=== PATIENT | female | born 1995 | race Caucasian/White ===

== ENCOUNTER 2024-09-22 15:30 | Observation (INO) | payer MEDICAID, SELFPAY ==
[2024-09-22 15:45] VITALS: BP 113/69; PULSE 74
[2024-09-22 16:15] VITALS: BMI 25.0
[2024-09-22 16:16] VITALS: BP 113/69; PULSE 74; RESP 18; RESP 99; TEMP 36.6
--- NOTE | 2024-09-22 17:16 | XR_ITS ---
Examination: Complete OB ultrasound greater than 14 weeks Date and time of exam: October 02, 2024 1836 hrs. Indications: Patient fell today followed by pelvic contractions Findings: Viable intrauterine single fetus with single amniotic sac presentation cephalic Cardiac motion 167 BPM Placenta anterior grade 2 Umbilical cord insertion seen Amniotic fluid index 20 cm spine maternal left Cervix 3.9 cm Ovaries obscured by the uterus Mild hydrocele Composite estimated gestational age based on BPD, head circumference, abdominal circumference, femur length is 34 weeks 1 day Estimated weight 2323.6 g. Survey of intracranial anatomy, spinal anatomy, abdominal anatomy, four-chamber heart performed with no abnormalities identified. Impression: Viable intrauterine gestation cephalic presentation.
[2024-09-22 17:57] LABS: Collection Type, Urine Clean Catch
[2024-09-22 18:15] LABS: Bacteria,Urine 1+; Bilirubin,Urine Negative (Negative); Blood,Urine 1+ (Negative); Clarity,Urine Turbid (Clear/Hazy); Color,Urine Lt-Yellow (Lt Yel-Yel); Glucose, Urine Negative (Negative); Ketones,Urine Negative (Negative); Leukocyte Esterase,Urine Positive (Negative); Nitrite,Urine Negative (Negative); Protein,Urine Negative (Neg - Trace); RBC,Urine 8 /hpf (0-3); Specific Gravity,Urine 1.015 (1.001-1.035); Squamous Epithelial Cell,Urine 15 /hpf (0-5); Urobilinogen,Urine Negative mg/dL (0.0-1.0); WBC,Urine 11 /hpf (0-5)
[2024-09-22 18:39] LABS: FFN Specimen Descripton Other; Fetal Fibronectin Negative (Negative)
== END 2024-09-22 20:33 | disposition home or self-care (01) ==
PROVIDERS: Admitting Provider Specialist; PCP Internal Medicine; Referring Provider Specialist; Visit Provider Specialist
DX: Z34.83 Encounter for supervision of other normal pregnancy, third trimester (principal); Z3A.31 31 weeks gestation of pregnancy
CPT/HCPCS: 59899; 76805; 81001; 82731

== ENCOUNTER 2024-10-28 17:52 | Inpatient (IN) | payer MEDICAID, SELFPAY ==
[2024-10-28] VITALS (82 sets, daily range): BP systolic 0–122; BP diastolic 0–76; PULSE 68–111; TEMP 36.7; O2SAT 86–100
[2024-10-28] MEDS: RINGERS LACTATED 1000 ML 1,000 ML 100 ML IV (18:15)
--- NOTE | 2024-10-28 18:27 | PD.LDHP ---
Documentation for date of: 10/28/24 OB Labor/Induct. HPI History of Present Illness Chief complaint: Ruptured membranes, contractions, 37 weeks : 4 Para: 3 Term pregnancies: 3 pregnancies: 0 Living children: 3 History of Abortions: Spontaneous and Elective: 0 History of Vaginal deliveries: 3 History of sections: No History of : No LUIS: 11/18/24 Gestational Age (weeks): 37 Gestational Age (days): 0 History of present illness: The patient is a 29-year-old -0-0-3 at 37 0/7 weeks with all care uncomplicated with Dr Adorno who presented to triage reporting ruptured membranes about 6:00 PM on 10/28/2024. The patient's EDC is 11/18/2024. The patient was evaluated and found to be 8 cm dilated. She has not had a group B strep swab performed yet. All her remaining care is up-to-date and on the chart. History of Present Dating criteria: LMP confirmed by 1st trimester US Adequate Care: Yes Ultrasounds: normal mid trimester US Obstetrical complications: none Medical complications: none Labs Maternal Blood Type: O Pos Labs: Negative: RPR, Hepatitis B, Rubella Titre (Rubella nonimmune), HIV, Chlamydia and Gonorrhea and Unknown: Group Beta Strep (Group B strep swab not performed yet) Past Medical History Surgical History SURGICAL: Negative Section Meds Home Medications and Allergies Home Medications ?Medication ?Instructions ?Recorded ?Confirmed ?Type vits no.124-ferrous fum 1 tab PO QDAY 10/02/18 09/19/22 History 27 mg iron-folic acid 800 mcg tablet ( Vitamin) Allergies Allergy/AdvReac Type Severity Reaction Status Date / Time ciprofloxacin Allergy Severe Swelling Verified 09/19/22 05:15 of Lip/Tongue/Throat OB Exam Physical Exam Vital signs: Pulse BP 83 122/76 10/28/24 18:26 10/28/24 18:26 Detailed Labor and Delivery Exam Dilation (cm): 8 Effacement (%): 80 Cervix position: anterior station: -2 Consistency: soft Presentation: Vertex Membranes: ruptured Amniotic fluid: clear Baseline heart rate: 150 monitor accelerations: 15x15 monitor decelerations: None intermediate accountant variability: Moderate (11-25) Contraction frequency (min): every 5 min Tachysystole: No Contraction intensity: Moderate OB Assessment & Plan Assessment and Plan (1) Active labor at term: Status: Acute Assessment and plan: Admit anticipate . Ampicillin for unknown group B strep Additional Plan Induction method: none Plan: anticipate NVD
[2024-10-28 18:45] LABS: Basophils % (Auto) 1 % (0-2.5); Eosinophils # (Auto) 0.1 Thou/mm3 (0.0-0.5); Eosinophils % (Auto) 1 % (0-10); Hematocrit 36.8 % (36.0-46.0); Hemoglobin 12.7 g/dL (12.0-16.0); Immature Granulocytes % (Auto) 1 % (0-0); Immature Granulocytes Auto 0.06 Thou/mm3 (0.00-0.00); Lymphocytes # (Auto) 1.7 Thou/mm3 (1.0-4.8); Lymphocytes % (Auto) 20 % (10-50); Mean Corpuscular HGB Conc 34.5 g/dl (31.0-37.0); Mean Corpuscular Hemoglobin 34.3 pg (25.0-35.0); Mean Corpuscular Volume 100 fL (80-100); Monocytes # (Auto) 0.6 Thou/mm3 (0.0-0.8); Monocytes % (Auto) 7 % (0-12); Neutrophils # (Auto) 6.1 Thou/mm3 (1.8-7.7); Neutrophils % (Auto) 71 % (37-80); Nucleated Red Blood Cell % 0 /100 WBC (0); Platelet Count 244 Thou/mm3 (140-440); RDW Standard Deviation 50.2 fL (36.4-46.3); White Blood Count 8.6 Thou/mm3 (3.6-11.0)
[2024-10-28 20:06] LABS: Syphilis Nonreactive (Nonreactive)
--- NOTE | 2024-10-28 21:51 | PD.LDPN ---
Documentation for date of: 10/28/24 OB Labor Progress Note Pain Control Pain control: tolerating well Comments: 8 patient does not feel the urge to push Pelvic Exam Dilation (cm): 8 Effacement (%): 80 station: -2 Amniotic membrane status: Leaking (Ruptured a forebag at 9:50) Contractions Monitor mode: External Contraction frequency: every 5 min Contraction intensity: Moderate Status status: Category l Assessment and Plan Assessment: active labor Plan OB labor note: continuous present management Comments: Patient is unknown group B strep status we did check a group B strep swab. The patient declines empiric ampicillin treatment at this time
[2024-10-28] MEDS: MINERAL OIL 30 ML UDC TOP (22:13)
[2024-10-28] MEDS: OXYTOCIN in NS 20 units 20 UNIT/1,000 ML BAG 125 UNIT IV (22:27)
[2024-10-28] MEDS: BENZO/LANO/ALOE (Dermoplast) 60 GM CAN 1 SPRAY TOP (22:34)
[2024-10-29] VITALS (12 sets, daily range): BP systolic 101–107; BP diastolic 54–69; PULSE 67–78; RESP 16–18; TEMP 36.6–37.1; O2SAT 97–99
[2024-10-29] MEDS: TRANEXAMIC ACID 1,000 MG IVPB 1,000 MG/100 ML BAG 200 MG IV (00:07)
--- NOTE | 2024-10-29 06:59 | PD.LDDELS ---
Data (Rao) Data Hx Section: No Maternal Blood Type: O Pos Rubella Titre: Negative RPR: Non-reactive Labs: Negative: RPR, Hepatitis B, HIV, Chlamydia and Gonorrhea and Unknown: Group Beta Strep : 4 Para: 3 Term: 3 : 0 : 0 Delivery Data (Rao) Labor Data Stimulated/Augmented: No Induction: No ROM Date: 10/28/24 ROM Time: 17:00 Rupture Type: SROM Amniotic Fluid: Clear Delivery Data EDC: 11/18/24 EDC calculated by:: LMP/early US confirmation Labor Onset Stage 1 Date: 10/28/24 Labor Onset Stage 1 Time: 07:00 Labor Onset Stage 2 Date: 10/28/24 Labor Onset Stage 2 Time: 22:03 Delivery Date: 10/28/24 Delivery Time: 22:19 Gestational age (weeks): 37 Gestational age (days): 0 Placenta Delivery Date: 10/28/24 Placenta Delivery Time: 22:25 Length stage 2 (minutes): 10 Length stage 3 (minutes): 5 Delivered by: Rossy Barnett Delivery nurse: Merry Roy Snow Groomer at delivery: No Support person(s) at delivery: FOB Other staff at delivery: Nurse Other staff at delivery: RT Other staff at delivery: Desi Love Delivery Method Delivery: Vaginal Delivery Type: Spontaneous Presentation: Vertex Position: OA Anesthesia Type Primary Anesthesia: None Secondary Anesthesia: None Delivery Room Medications Other Intrapartum Medications: No Post Delivery Medications N/A: No Placenta Placenta Delivery: Spontaneous Placenta Cultures Obtained: No Placenta Sent for Examination: No Cord Sample: Cord Blood Obtained Episiotomy Episiotomy: None EBL Estimated blood loss (ml): 200 Umbilical Cord Umbilical Vessels: 3 Nuchal Cord: x1 Body Cord: None Additional Procedures The patient is a 29-year-old -0-0-3 at 37-0/7 weeks who presented with ruptured membranes around 1900 on 10/28/24 8 cm dilated. All of her care was up-to-date and on the chart with Dr Adorno. She did not have a group B strep swab performed yet. As she was 8 cm dilated, I offered her a Group B strep swab which she accepted. I offered her empiric treatment with ampicillin which she declined. The patient had irregular contractions and was not in much pain. About 2 and a half hours after admission, I examined the patient and she was 9 cm with a bulging bag. I AROMed the bag and the patient progressed to complete and began pushing within the next 20 minutes. She pushed through 3 spaced out contractions delivering a liveborn male at 2219. Findings: Liveborn male, in the ALYSIA presentation. With a loose nuchal cord x 1. No meconium. Apgars 9 and 9. Weight 3255 g or approximately 7 pounds 3 ounces. The placenta was complete spontaneous grossly normal delivering within 5 minutes of the baby. The patient delivered over an intact perineum. Complications were none Condition both mom and were in stable condition in the delivery room. Complications Complications: None. [place] Data (Rao) Data order: 4 Infant Gender: Male Weight Grams: 3255 1 Minute Total: 9 5 Minute Total: 9
[2024-10-29 07:05] LABS: Basophils # (Auto) 0.1 Thou/mm3 (0.0-0.2); Basophils % (Auto) 0 % (0-2.5); Eosinophils % (Auto) 0 % (0-10); Hematocrit 31.1 % (36.0-46.0); Hemoglobin 10.4 g/dL (12.0-16.0); Immature Granulocytes % (Auto) 1 % (0-0); Immature Granulocytes Auto 0.07 Thou/mm3 (0.00-0.00); Lymphocytes # (Auto) 1.9 Thou/mm3 (1.0-4.8); Lymphocytes % (Auto) 15 % (10-50); Mean Corpuscular HGB Conc 33.4 g/dl (31.0-37.0); Mean Corpuscular Hemoglobin 34.1 pg (25.0-35.0); Mean Corpuscular Volume 102 fL (80-100); Monocytes % (Auto) 8 % (0-12); Neutrophils # (Auto) 9.6 Thou/mm3 (1.8-7.7); Neutrophils % (Auto) 76 % (37-80); Nucleated Red Blood Cell % 0 /100 WBC (0); Platelet Count 187 Thou/mm3 (140-440); RDW Standard Deviation 51.8 fL (36.4-46.3); Red Blood Count 3.05 Miln/mm3 (4.00-5.20); White Blood Count 12.6 Thou/mm3 (3.6-11.0)
--- NOTE | 2024-10-29 12:35 | PD.LDPPPRG ---
Subjective Subjective Interval history: The patient is a 29-year-old G4 now P4004 status post vaginal delivery around 10:30 PM last evening. She is resting comfortably in bed. Baby is lying next to her. She is breast-feeding. Her is at bedside. This was her fourth boy. She declines heavy bleeding fevers chills or significant pain. Exam Vital Signs Temp Pulse Resp BP Pulse Ox O2 Del Method 98.7 F 70 16 101/61 97 Room Air 10/29/24 08:00 10/29/24 08:00 10/29/24 08:00 10/29/24 08:00 10/29/24 08:00 10/29/24 08:00 Narrative Exam Patient is alert and oriented x 3 resting comfortably in bed. Fundus is firm nontender. Objective Labs 10/29/24 06:15 Labs: Laboratory Results - last 24 hr 10/28/24 10/29/24 18:20 06:15 WBC 8.6 12.6 H D RBC 3.70 L 3.05 L Hgb 12.7 10.4 L D Hct 36.8 31.1 L MCV 100 102 H MCH 34.3 34.1 MCHC 34.5 33.4 RDW Std Deviation 50.2 H 51.8 H Plt Count 244 187 D Neut % (Auto) 71 76 Lymph % (Auto) 20 15 [place] % (Auto) 7 8 Eos % (Auto) 1 0 Baso % (Auto) 1 0 Neut # (Auto) 6.1 9.6 H Lymph # (Auto) 1.7 1.9 [place] # (Auto) 0.6 1.0 H Eos # (Auto) 0.1 0.0 Baso # (Auto) 0.0 0.1 Immature Gran # (Auto) 0.06 H 0.07 H Absolute Nucleated RBC 0.00 0.00 Immature Gran % 1 H 1 H Nucleated RBC % 0 0 Syphilis Serology Nonreactive Blood Type O Positive Antibody Screen NEGATIVE Blood Bank Wristband ID Yes Assessment & Plan Problem List (1) Term delivered: Status: Acute Assessment and plan: Patient is day #1 doing quite well. Since she delivered late we will keep the patient in house till tomorrow morning. She was group B strep unknown and a culture performed on admission is still pending. Patient had declined empiric treatment with ampicillin and delivered yesterday within 3 hours of getting admitted. Time Spent With Patient Time: Total time spent is greater than 50% in coordination of care (as documented) at patient's floor/unit and/or counseling patient: Time with patient: less than 15 minutes
[2024-10-29] MEDS: IBUPROFEN TAB 400 MG TABLET 800 MG PO (16:14)
[2024-10-30 04:28] VITALS: BP 107/69; PULSE 63; RESP 16; TEMP 36.6; O2SAT 97
--- NOTE | 2024-10-30 07:16 | PD.LDPPPRG ---
Subjective Subjective Interval history: Patient denies any problem or complaint Exam Vital Signs Temp Pulse Resp BP Pulse Ox O2 Del Method 97.8 F 63 16 107/69 97 Room Air 10/30/24 04:28 10/30/24 04:28 10/30/24 04:28 10/30/24 04:28 10/30/24 04:28 10/30/24 04:28 Routine Cardiovascular Exam Comments: Regular rate and rhythm Routine Abdominal Exam Comments: Fundus is firm nontender Routine Extremities Exam Comments: Nontender Objective Labs 10/29/24 06:15 Assessment & Plan Problem List (1) Term delivered: Status: Acute Assessment and plan: day #1 status post spontaneous vaginal delivery Discharge home Discharge instructions given. Follow-up in the office in 6 weeks Time Spent With Patient Time: Total time spent is greater than 50% in coordination of care (as documented) at patient's floor/unit and/or counseling patient:
--- NOTE | 2024-10-30 07:18 | PD.LDDS ---
DS: Providers Provider Date of admission: 10/28/24 18:15 Primary care physician: Physician No Primary/Family Admitting Provider: Rossy Barnett MD ([facility]) Attending Provider on Admission: Janes Adorno MD Consults: 10/28/24 22:38 Referral Routine Comment: 10/28/24 22:58 Referral Routine Comment: Attending Provider on DC: Janes Adorno MD Discharging Provider: Janes Adorno MD DS: Diagnosis Problem List Completed Was Problem List Reviewed/Reconciled?: Yes Summary/Hosp Course Brief History: The patient is a 29-year-old -0-0-3 at 37 0/7 weeks with all care uncomplicated with Dr Adorno who presented to triage reporting ruptured membranes about 6:00 PM on 10/28/2024. The patient's EDC is 11/18/2024. The patient was evaluated and found to be 8 cm dilated. She has not had a group B strep swab performed yet. All her remaining care is up-to-date and on the chart. Time Spent with Patient Time attestation: Total time spent providing and/or coordinating discharge services: Exam Vital Signs Temp Pulse Resp BP Pulse Ox O2 Del Method 97.8 F 63 16 107/69 97 Room Air 10/30/24 04:28 10/30/24 04:28 10/30/24 04:28 10/30/24 04:28 10/30/24 04:28 10/30/24 04:28 Discharge Plan Plan Patient Disposition: HOME (Self Care) Patient condition on transfer: Stable Prescriptions/Referrals Prescriptions/Med Rec: Continued Vitamin 27 mg iron- 800 mcg Tablet 1 tab PO QDAY ibuprofen 800 mg tablet 800 mg PO Q6H PRN (Reason: pain) Qty: 20 0RF Referrals: No Primary/Family,Physician [Primary Care Provider] - Patient/Caregiver Discharge Instructions Discharge Activity: activity as tolerated Other Discharge Activity Instructions:: Follow up office 6 weeks. Print Language: [place] Islander Stand Alone Forms: Nikki Award Info., Patient Portal Info Letter Discharge Order Discharge Orders: Discharge (Routine); Ordered 10/30/24 Ordered By: Janes Adorno Planned Discharge Date 10/30/24
[2024-10-30 08:00] VITALS: BP 105/66; PULSE 74; RESP 18; TEMP 36.4; O2SAT 97
[2024-10-30] MEDS: MEASLES, MUMPS & RUBELLA VACC 0.5 ML VIAL SCi (11:00)
== END 2024-10-30 14:40 | disposition home or self-care (01) | DRG 560 ==
LOC: S4NX 10-30 06:03 → S4SX 10-30 06:03
PROVIDERS: Admitting Provider Obstetrics & Gynecology; Visit Provider Specialist
DX: O42.02 Full-term premature rupture of membranes, onset of labor within 24 hours of rupture (principal); O69.81X0 Labor and delivery complicated by cord around neck, without compression, not applicable or unspecified; Z37.0 Single live birth; Z3A.37 37 weeks gestation of pregnancy
CPT/HCPCS: 36415; 59409; 85025; 86780; 86850; 86900; 86901; 87081; 90707; 94762; J2590; J3490; J7120; A9270

== ENCOUNTER 2024-12-01 20:05 | Emergency (ER) | payer MEDICAID, SELFPAY ==
[2024-12-01 20:49] VITALS: BP 134/91; PULSE 74; RESP 18; TEMP 37; O2SAT 96
--- NOTE | 2024-12-01 20:50 | PD.EDWOUND ---
ED Wound/Laceration-RME/HPI General Chief Complaint: Wound/Laceration Stated Complaint: LEFT FINGER LAC Time Seen by Provider: 12/01/24 20:26 Arrival date/time: 12/01/24 20:05 RME / HPI RME / HPI narrative: 29-year-old female patient came in for evaluation regarding laceration to the left middle finger. Incident happened while washing the dishes with a broken glass. Denies any other injury patient is worried because it is bleeding a lot. Vaccination is up-to-date. For tetanus. Incident happened few minutes prior to ER visit. Related Data Home Medications ?Medication ?Instructions ?Recorded ?Confirmed vits no.124-ferrous fum 1 tab PO QDAY 10/02/18 09/19/22 27 mg iron-folic acid 800 mcg tablet ( Vitamin) Previous Rx's ?Medication ?Instructions ?Recorded ibuprofen 800 mg tablet 800 mg PO Q6H PRN pain #20 tabs 09/19/22 Allergies Allergy/AdvReac Type Severity Reaction Status Date / Time ciprofloxacin Allergy Severe Swelling Verified 12/01/24 20:06 of Lip/Tongue/Throat Review of Systems Review of Systems Narrative Review of Systems: Review of system reviewed and within normal limits except mentioned in HPI ED Exam Narrative Physical exam: VITAL SIGNS: Reviewed. GENERAL APPEARANCE: Alert and interactive, follows commands, no acute distress, HEAD AND FACE: Non-traumatic. ENT: PERRL, pink conjunctivitis, eyelid no trauma, Mucous membrane moist. NECK: Supple, nontender, no nuchal rigidity. MUSCULOSKELETAL: low back nontender, full range of motion. EXTREMITIES: Nontender, full range of motion. SKIN: Color pink, dry, no rash, 1 cm laceration to the left middle finger distal phalanx palmar aspect, no abrasions, no contusions. LYMPHATICS: Deferred. Course Quality Measures none Orders Category Date Time Status Lidocaine 1% 20 ml [Xylocaine 1% 20 ML] Med 12/01/24 20:49 Discontinued 10 ml INFL X1 ONE Vital Signs Vital signs: Vital Signs Temperature 98.6 F 12/01/24 20:49 Pulse Rate 74 12/01/24 20:49 Respiratory Rate 18 12/01/24 20:49 Blood Pressure 134/91 H 12/01/24 20:49 Pulse Oximetry (%) 96 12/01/24 20:49 Oxygen Delivery Method Room Air 12/01/24 20:49 Wound / Laceration MDM Narrative MDM Narrative:: 29-year-old female patient came in for evaluation regarding laceration to the left middle finger. Incident happened while washing the dishes with a broken glass. Denies any other injury patient is worried because it is bleeding a lot. Vaccination is up-to-date. For tetanus. Incident happened few minutes prior to ER visit. Repair and suturing was done by me see procedure note Patient data External records reviewed:: None Clinical information provided by:: patient Social determinants that could affect healthcare access:: none Patient has the following chronic illnesses:: None How is presenting disease/condition affected by chronic disease/condition?: no chronic disease Evaluation data The following diagnostics were reviewed and interpreted by me:: other (specify) (None) Lab and/or radiology exams considered but not ordered:: None Interpretation Summary: None Medications / Prescriptions Medications or Prescriptions considered but not ordered:: None Medication administrations:: Medication Administration History Discontinued Medications Lidocaine HCl (Lidocaine Hcl 1% 20 Ml Vial) 10 ml INFL X1 ONE Stop: 12/01/24 20:50 Last Admin: 12/01/24 21:05 Dose: 10 ml Documented By: Lidocaine Consultations Consultation(s) initiated? (list below): No Diagnosis Wound Differential Diagnosis: laceration, abrasion and avulsion of skin Most likely diagnosis given after review of the tests above:: Finger laceration Admission Indicated Admission indicated?: not indicated Admission Request Was there a request for admission?: No Disposition Plan Disposition Plan: Discharge Discharge Attestation Discharge Attestation: The patient and all family members were given an opportunity to ask questions and understood the discharge instructions. Discharge instructions specifically effects, indications for sooner follow up or return to the emergency department, and the expected course of current diagnosis. Patient condition: Stable Discharge Plan Plan Patient Disposition: HOME (Self Care) Discharge Disposition comment: Stable Prescriptions/Referrals Prescriptions/Med Rec: No Action Vitamin 27 mg iron- 800 mcg Tablet 1 tab PO QDAY ibuprofen 800 mg tablet 800 mg PO Q6H PRN (Reason: pain) Qty: 20 0RF Problem List Clinical Impression: Finger laceration Patient/Caregiver Discharge Instructions Discharge Activity: activity as tolerated Education Materials: ED Laceration: All Closures Additional Instructions: Thank you for the opportunity for serving you today. You are stable for discharged . You are advised to: Follow-up with your PCP in 1 to 2 days Return to ED for worsening of symptoms Increase oral fluids Daily dressing with bacitracin. For removal of sutures in 7 to 10 days Print Language: Sinhala Stand Alone Forms: Nikki Award Info., Patient Portal Info Letter PA/SHELTER CASE MANAGER Supervising Physician PA/SHELTER CASE MANAGER Supervising Physician: MD Rishabh
[2024-12-01] MEDS: LIDOCAINE HCL 1% 20 ML VIAL 10 ML INFL (21:05)
== END 2024-12-01 21:39 | disposition home or self-care (01) ==
LOC: SERX 21:33
PROVIDERS: Emergency Provider Emergency Medicine; PCP Internal Medicine
DX: S61.213A Laceration without foreign body of left middle finger without damage to nail, initial encounter (principal); X58.XXXA Exposure to other specified factors, initial encounter; Y93.G1 Activity, food preparation and clean up
CPT/HCPCS: 12001; 99283; J3490

== ENCOUNTER 2025-01-06 19:21 | Emergency (ER) | payer MEDICAID, SELFPAY ==
[2025-01-06 19:23] VITALS: BMI 21.8
[2025-01-06 19:49] VITALS: BP 101/68; PULSE 66; RESP 17; TEMP 36.8; O2SAT 97
[2025-01-06 20:03] LABS: Collection Type, Urine Clean Catch
[2025-01-06 20:08] LABS: Bilirubin,Urine Negative (Negative); Blood,Urine Trace (Negative); Clarity,Urine Clear (Clear/Hazy); Color,Urine Lt-Yellow (Lt Yel-Yel); Culture Indicated,Urine Not Indicated; Glucose, Urine Negative (Negative); Hyaline Casts,Urine < 1 /hpf (0-1); Ketones,Urine Negative (Negative); Leukocyte Esterase,Urine Negative (Negative); Nitrite,Urine Negative (Negative); Protein,Urine Trace (Neg - Trace); RBC,Urine 3 /hpf (0-3); Specific Gravity,Urine 1.026 (1.001-1.035); Squamous Epithelial Cell,Urine 3 /hpf (0-5); Urobilinogen,Urine Negative mg/dL (0.0-1.0); WBC,Urine 2 /hpf (0-5)
[2025-01-06 20:13] LABS: HCG Qualitative,Urine Negative
--- NOTE | 2025-01-06 20:54 | EDNOTE_ITS ---
ED General RME/HPI General Chief complaint: General Adult/Misc Complain Stated complaint: urinary sx dysuria, frequency, lo back pain Time Seen by Provider: 01/06/25 20:29 Arrival date/time: 01/06/25 19:21 RME / HPI RME / HPI narrative: 29-year-old female presents to the ED with complaint of mild dysuria and low back pain. She states she was seen last week at the urgent care and given Macrobid for urinary tract infection. She completed the course of antibiotics and today started feeling low back pain. She is 2 months and is currently nursing. She has an allergy to Cipro. Related Data Home Medications ?Medication ?Instructions ?Recorded ?Confirmed vits no.124-ferrous fum 1 tab PO QDAY 9 09/19/22 27 mg iron-folic acid 800 mcg tablet ( Vitamin) Previous Rx's ?Medication ?Instructions ?Recorded ibuprofen 800 mg tablet 800 mg PO Q6H PRN pain #20 t abs 09/19/22 Allergies Allergy/AdvReac Type Severity Reaction Status Date / Time ciprofloxacin Allergy Severe Swelling Verified 01/06/25 19:29 of Lip/Tongue/Throat Review of Systems Review of Systems Systems Reviewed: All systems reviewed, normal except as documented Past Medical History Past Medical History NEUROLOGIC: Positive Neurological Disorders and Seizures (IN [place] (1)) CARDIAC: Negative Cardiac Disorders or Congestive Heart Failure RESPIRATORY: Negative Chronic Obstructive Pulmonary Disease (COPD) GASTROINTESTINAL: Negative Gastrointestinal Disorders, Hepatitis or Colorectal Cancer GENITOURINARY: Negative Genitourinary Disorders, Renal Disease or Prostate Cancer REPRODUCTIVE: Positive Previous Pregnancies (X2); Negative Breast Cancer, Pelvic Inflammatory Disease or Testicular Cancer MUSCULOSKELETAL: Negative Musculoskeletal Disorders or Bone Cancer ENDOCRINE: Negative Endocrine Disorders, Diabetes Mellitus Type 1 or Diabetes Mellitus Type 2 HEMATOLOGIC: Negative Blood Disorders, Anemia, Leukemia, Hemophilia, Thalassemia, Sickle Cell Disease or Clotting Problems OTHER HISTORY: Positive Hospitalization (CHILDBIRTH); Negative Autoimmune Disease, Down Syndrome, Developmental Delay, Shingles, Falls, Blood Transfusions, Blood Transfusion Reaction, Anesthesia Reactions, Organ Transplant, Chemotherapy, Radiation Therapy, Hyperbaric Therapy, MRSA, VRSA, Vancomycin-Resistant Enterococci, Human Immunodeficiency Virus (HIV), Chicken Pox, Measles, Mumps, Rubella (Sinhala Measles), Pertussis, Clostridium Difficile, Cancer, Breast Cancer, Cervical Cancer, Colorectal Cancer, Lung Cancer, Ovarian Cancer, Prostate Cancer or Testicular Cancer Family History FAMILY HISTORY: Positive Family Psychiatric Problems (UNCLE-UNSPECIFIED), Family Respiratory Disorders (SISTER-ASTHMA), Family Cardiac Disorders (MOTHER-HTN, GRANDFATHER PASSED FROM [place]) and Family Surgery (MOTHER-HYSTERECTOMY); Negative Family Gastrointestinal Problems, Family Cancer or Family Anesthesia Reaction Surgical History SURGICAL: Negative Section or Organ Transplant Social History SMOKING STATUS: Never smoker ED Exam Narrative Physical exam: Alert and oriented, very pleasant 29-year-old female, no acute distress. Lungs are clear, regular rate and rhythm. Vital signs blood pressure 101/68, pulse 66, respirations 17, nonlabored, temperature 98.3, O2 sat 97% on room air. Abdomen is soft and nontender. Minimal CVA tenderness bilaterally. Course Course Course Narrative: Urinalysis reveals clear light yellow-colored urine with a specific gravity of 1.026 with trace protein, trace blood, negative nitrites, negative leukocyte Estrace, 3 RBCs, 2 WBCs, 3 squamous epithelial cells and no bacteria. Urine hCG is negative. CBC reveals a normal white count with normal H&H and platelets. Chemistry panel is normal with normal renal function and liver function. Amylase and lipase are normal at 114/47. Quality Measures none Orders Category Date Time Status Amylase Stat Lab 01/06/25 21:19 Completed CBC Stat Lab 01/06/25 21:19 Completed Comprehensive Metabolic Panel Stat Lab 01/06/25 21:19 Completed HCG Qualitative,Urine Stat Lab 01/06/25 19:40 Completed Lipase Stat Lab 01/06/25 21:19 Completed UA, C/S IF [Urinalysis, C/S if Indicated] Stat Lab 01/06/25 19:40 Completed Vital Signs Vital signs: Vital Signs Temperature 98.3 F 01/06/25 19:49 Pulse Rate 66 01/06/25 19:49 Respiratory Rate 17 01/06/25 19:49 Blood Pressure 101/68 01/06/25 19:49 Pulse Oximetry (%) 97 01/06/25 19:49 Oxygen Delivery Method Room Air 01/06/25 19:49 Discharge Plan Plan Patient Disposition: HOME (Self Care) Discharge Disposition comment: Stable Prescriptions/Referrals Prescriptions/Med Rec: No Action Vitamin 27 mg iron- 800 mcg Tablet 1 tab PO QDAY ibuprofen 800 mg tablet 800 mg PO Q6H PRN (Reason: pain) Qty: 20 0RF Referrals: No Primary/Family,Physician [Primary Care Provider] - In 1 week Problem List Clinical Impression: Low back strain Patient/Caregiver Discharge Instructions Education Materials: ED Back Sprain/Strain Additional Instructions: Follow-up with your primary care physician in 24 to 48 hours. Return to the ED for any new or worsening symptoms. Print Language: Kinyarwanda Stand Alone Forms: Nikki Award Info., Patient Portal Info Letter PA/FRANCISCO JAVIER Supervising Physician PA/INTERNATIONAL RELATIONS PROFESSOR Supervising Physician: Dr Radha BOWMAN Narrative [facility] hospital course: 29-year-old female presents to the ED with complaint of mild dysuria and low back pain. She states she was seen last week at the urgent care and given Macrobid for urinary tract infection. She completed the course of antibiotics and today started feeling low back pain. She is 2 months and is currently nursing. She has an allergy to Cipro. Alert and oriented, very pleasant 29-year-old female, no acute distress. Lungs are clear, regular rate and rhythm. Vital signs blood pressure 101/68, pulse 66, respirations 17, nonlabored, temperature 98.3, O2 sat 97% on room air. Abdomen is soft and nontender. Minimal CVA tenderness bilaterally. Urinalysis reveals clear light yellow-colored urine with a specific gravity of 1.026 with trace protein, trace blood, negative nitrites, negative leukocyte Estrace, 3 RBCs, 2 WBCs, 3 squamous epithelial cells and no bacteria. Urine hCG is negative. CBC reveals a normal white count with normal H&H and platelets. Chemistry panel is normal with normal renal function and liver function. Amylase and lipase are normal at 114/47. Procedures done or offered: N/A Clinical Information Provided by patient Medical Records Reviewed None N/A Meds/Rx Considered, not Ordered None Labs/Rad/Tests considered, not Ordered None Chronic Illness/Social Conditions which may negatively complicate care or outcome(s)-explain: None or not applicable EKG EKG not done Imaging Imaging interpretation: none Medication Administration(s) none Diagnosis Differential diagnosis: Pyelonephritis, UTI, , low back strain, sciatica Differential dx and/or dx ruled out: UTI, pyelonephritis, Most likely dx, and/or detailed dx discussion: Low back strain Dispositon Disposition: Discharge Home
[2025-01-06 21:37] LABS: Basophils # (Auto) 0.1 Thou/mm3 (0.0-0.2); Basophils % (Auto) 1 % (0-2.5); Eosinophils # (Auto) 0.2 Thou/mm3 (0.0-0.5); Eosinophils % (Auto) 3 % (0-10); Hemoglobin 13.1 g/dL (12.0-16.0); Immature Granulocytes % (Auto) 0 % (0-0); Immature Granulocytes Auto 0.03 Thou/mm3 (0.00-0.00); Lymphocytes # (Auto) 2.3 Thou/mm3 (1.0-4.8); Lymphocytes % (Auto) 32 % (10-50); Mean Corpuscular HGB Conc 34.5 g/dl (31.0-37.0); Mean Corpuscular Hemoglobin 33.9 pg (25.0-35.0); Mean Corpuscular Volume 98 fL (80-100); Monocytes # (Auto) 0.6 Thou/mm3 (0.0-0.8); Monocytes % (Auto) 8 % (0-12); Neutrophils # (Auto) 3.8 Thou/mm3 (1.8-7.7); Neutrophils % (Auto) 55 % (37-80); Nucleated Red Blood Cell % 0 /100 WBC (0); Platelet Count 253 Thou/mm3 (140-440); RDW Standard Deviation 44.2 fL (36.4-46.3); Red Blood Count 3.87 Miln/mm3 (4.00-5.20)
[2025-01-06 22:19] LABS: Alanine Aminotransferase 15 U/L (10-49); Albumin, Serum 4.6 gm/dL (3.5-5.0); Albumin/Globulin Ratio 2.1 (1.2-2.2); Alkaline Phosphatase 111 U/L (46-116); Anion Gap 10 (7-16); Aspartate Amino Transferase 17 U/L (0-34); BUN/Creatinine Ratio 20 Ratio (12-20); Bilirubin,Total 0.3 mg/dL (0.3-1.2); Blood Urea Nitrogen 12 mg/dL (9-23); Calcium 9.5 mg/dL (8.3-10.6); Calcium (Corrected) 9.5 mg/dL (8.5-10.1); Carbon Dioxide 25.4 mMol/L (20.0-31.0); Chloride 105 mMol/L (98-107); Creatinine (Component) 0.6 mg/dL (0.6-1.3); Estimated Creatinine Clearance 117.3 mL/min (>60); Globulin 2.2 gm/dL (2.3-3.5); Glucose 82 mg/dL (74-106); Lipase 47 U/L (12-53); Osmolality,Calculated 278 (275-295); Potassium 3.8 mMol/L (3.4-5.1); Sodium 140 mMol/L (136-145); Total Protein 6.8 gm/dL (5.7-8.2); eGFR > 60 See Note
[2025-01-07 00:50] LABS: Amylase 114 U/L (30-118)
== END 2025-01-06 23:56 | disposition home or self-care (01) ==
PROVIDERS: Physician Assistant; Emergency Provider Emergency Medicine
DX: S39.012A Strain of muscle, fascia and tendon of lower back, initial encounter (principal); X58.XXXA Exposure to other specified factors, initial encounter
CPT/HCPCS: 36415; 80053; 81001; 81025; 82150; 83690; 85025; 87086; 99283

== ENCOUNTER → 2025-03-09 | Outpatient (CLI) | payer MEDICAID, SELFPAY ==
--- NOTE | 2025-03-09 09:44 | XR_ITS ---
Examination: Lumbar spine 3 views Technique one AP lateral coned lateral lower lumbar spine 3 views Date and time: March 09, 2025 1015 hours INDICATIONS: Lower back pain radiating down the right leg beginning one week ago. FINDINGS: Lumbar levoscoliosis 12 degrees No lumbar fracture. Mild disc narrowing L5-S1. No spondylolisthesis. IMPRESSION: Mild disc narrowing L5-S1
== END | disposition home or self-care (01) ==
DX: M48.07 Spinal stenosis, lumbosacral region (principal)
CPT/HCPCS: 72100

== ENCOUNTER 2025-07-14 20:37 | Emergency (ER) | payer MEDICAID, SELFPAY ==
[2025-07-14 20:38] VITALS: BMI 25.2
[2025-07-14 21:06] VITALS: BP 123/79; PULSE 65; RESP 18; TEMP 36.7; O2SAT 97
[2025-07-14 21:57] LABS: Collection Type, Urine Clean Catch
[2025-07-14 22:04] LABS: Bilirubin,Urine Negative (Negative); Blood,Urine 1+ (Negative); Clarity,Urine Clear (Clear/Hazy); Color,Urine Lt-Yellow (Lt Yel-Yel); Glucose, Urine Negative (Negative); Ketones,Urine Negative (Negative); Leukocyte Esterase,Urine Negative (Negative); Nitrite,Urine Negative (Negative); PH,Urine 6.5 (5.0-7.0); Protein,Urine Negative (Neg - Trace); RBC,Urine 4 /hpf (0-3); Specific Gravity,Urine 1.020 (1.001-1.035); Squamous Epithelial Cell,Urine 1 /hpf (0-5); Urobilinogen,Urine Negative mg/dL (0.0-1.0); WBC,Urine 2 /hpf (0-5)
--- NOTE | 2025-07-14 22:10 | PD.EDADULT ---
ED General RME/HPI General Chief complaint: General Adult/Misc Complain Stated complaint: LOWER BACK PAIN, ABD PAIN, UTI SYMPTOMS Time Seen by Provider: 07/14/25 21:09 Source: patient Arrival date/time: 07/14/25 20:37 Mode of arrival: ambulatory Limitations: no limitations RME / HPI RME / HPI narrative: This patient is a pleasant 30-year-old female who arrives to the ED today with complaints of bilateral lower back pain extending into her abdomen for the past day. Patient states the symptoms came on and have been relatively consistent. Patient denies any history of back pain concerns. Patient denies any definitive urinary discomfort issues. Patient denies any fever nausea or vomiting. Vital signs were stable at arrival. Related Data Home Medications ?Medication ?Instructions ?Recorded ?Confirmed vits no.[id number]-ferrous fum 1 tab PO QDAY 10/02/18 09/19/22 27 mg iron-folic acid 800 mcg tablet ( Vitamin) Previous Rx's ?Medication ?Instructions ?Recorded ibuprofen 800 mg tablet 800 mg PO Q6H PRN pain #20 tabs 09/19/22 ibuprofen 800 mg tablet (IBU) 800 mg PO Q8H PRN pain #14 tabs 07/14/25 Allergies Allergy/AdvReac Type Severity Reaction Status Date / Time ciprofloxacin Allergy Severe Swelling Verified 07/14/25 20:38 of Lip/Tongue/Throat Review of Systems Review of Systems Systems Reviewed: All systems reviewed, normal except as documented Past Medical History Past Medical History NEUROLOGIC: Positive Neurological Disorders and Seizures (IN [place] (1)) CARDIAC: Negative Cardiac Disorders or Congestive Heart Failure RESPIRATORY: Negative Chronic Obstructive Pulmonary Disease (COPD) GASTROINTESTINAL: Negative Gastrointestinal Disorders, Hepatitis or Colorectal Cancer GENITOURINARY: Negative Genitourinary Disorders, Renal Disease or Prostate Cancer REPRODUCTIVE: Positive Previous Pregnancies (X2); Negative Breast Cancer, Pelvic Inflammatory Disease or Testicular Cancer MUSCULOSKELETAL: Negative Musculoskeletal Disorders or Bone Cancer ENDOCRINE: Negative Endocrine Disorders, Diabetes Mellitus Type 1 or Diabetes Mellitus Type 2 HEMATOLOGIC: Negative Blood Disorders, Anemia, Leukemia, Hemophilia, Thalassemia, Sickle Cell Disease or Clotting Problems OTHER HISTORY: Positive Hospitalization (CHILDBIRTH); Negative Autoimmune Disease, Down Syndrome, Developmental Delay, Shingles, Falls, Blood Transfusions, Blood Transfusion Reaction, Anesthesia Reactions, Organ Transplant, Chemotherapy, Radiation Therapy, Hyperbaric Therapy, MRSA, VRSA, Vancomycin-Resistant Enterococci, Human Immunodeficiency Virus (HIV), Chicken Pox, Measles, Mumps, Rubella ([place] Measles), Pertussis, Clostridium Difficile, Cancer, Breast Cancer, Cervical Cancer, Colorectal Cancer, Lung Cancer, Ovarian Cancer, Prostate Cancer or Testicular Cancer Family History FAMILY HISTORY: Positive Family Psychiatric Problems (UNCLE-UNSPECIFIED), Family Respiratory Disorders (SISTER-ASTHMA), Family Cardiac Disorders (MOTHER-HTN, GRANDFATHER PASSED FROM [place]) and Family Surgery (MOTHER-HYSTERECTOMY); Negative Family Gastrointestinal Problems, Family Cancer or Family Anesthesia Reaction Surgical History SURGICAL: Negative Section or Organ Transplant Social History SMOKING STATUS: Never smoker ED Exam Narrative Physical exam: Patient was only in mild discomfort at time of evaluation. Patient declined the need for any pain medication while at the facility. General Limitations: Present no limitations General appearance: Present alert Head Head exam: Present atraumatic Eye Eye exam: Present normal appearance, PERRL and EOMI ENT ENT exam: Present normal exam, normal oropharynx and mucous membranes moist Neck Neck exam: Present normal inspection, full ROM and trachea midline Chest Chest inspection: Present normal inspection and symmetric chest wall rise Respiratory Respiratory exam: Present normal lung sounds bilaterally Cardiovascular Cardiovascular exam: Present regular rate, normal rhythm and normal heart sounds Abdominal Exam Abdominal exam: Present other (Diffuse lower back tenderness to palpation extending into the lower abdomen. No CVA tenderness appreciated. No signs of trauma.) Extremities Exam Extremities exam: Present normal inspection and full ROM Back Exam Back exam: Present other (Bilateral tenderness to palpation throughout the lateral aspect of the lumbar region. No step-offs noted. No signs of trauma.) Neurological Exam Neurological exam: Present alert, oriented X3 and CN II-XII intact Psychiatric Psychiatric exam: Present normal affect and normal mood Skin Skin exam: Present warm, dry, intact and normal color Course Quality Measures none Orders Category Date Time Status UA [Urinalysis] Stat Lab 07/14/25 21:46 Completed As noted above Vital Signs Vital signs: Vital Signs Temperature 98.1 F 07/14/25 21:06 Pulse Rate 65 07/14/25 21:06 Respiratory Rate 18 07/14/25 21:06 Blood Pressure 123/79 07/14/25 21:06 Pulse Oximetry (%) 97 07/14/25 21:06 Oxygen Delivery Method Room Air 07/14/25 21:06 As noted above Discharge Plan Plan Patient Disposition: HOME (Self Care) Prescriptions/Referrals Prescriptions/Med Rec: New ibuprofen [IBU] 800 mg tablet 800 mg PO Q8H PRN (Reason: pain) Qty: 14 0RF No Action Vitamin 27 mg iron- 800 mcg Tablet 1 tab PO QDAY ibuprofen 800 mg tablet 800 mg PO Q6H PRN (Reason: pain) Qty: 20 0RF Referrals: No Primary/Family,Physician [Primary Care Provider] - In 1 week Problem List Clinical Impression: Low back pain Patient/Caregiver Discharge Instructions Education Materials: ED Back Pain (Acute or Chronic) Additional Instructions: Advise utilizing anti-inflammatories as necessary as well as ice therapy. If symptoms continue, patient will need to follow-up with primary care provider. Print Language: Stateless Stand Alone Forms: [employer] Award Info., Patient Portal Info Letter MDM Narrative MDM hospital course (for use when minimal MDM required): All studies performed the ED were evaluated by me personally. Urinalysis is unremarkable for any urinary tract infection concerns. Patient appears to be suffering a musculoskeletal back pain issue. Advised patient utilize anti-inflammatories and ice therapy for the next few days. Follow-up with primary care provider if symptoms do not improve. Clinical Information Provided by: patient Medical Records reviewed None Meds/Rx considered, not ordered None Labs/Rad/Tests considered, not ordered None Chronic Illness/Social Conditions which may negatively complicate care or outcome(s)-explain: None or not applicable EKG EKG not done Labs Labs: interpreted by me Lab(s) Interpretation(s): Negative for urinary tract infection Imaging Imaging interpretation: none Medication Administration(s) none Diagnosis Differential Diagnosis ED Complaint MDM: Low back pain
== END 2025-07-14 22:25 | disposition home or self-care (01) ==
PROVIDERS: Physician Assistant; Emergency Provider Emergency Medicine
DX: M54.50 Low back pain, unspecified (principal)
CPT/HCPCS: 81001; 99282

== ENCOUNTER 2025-07-16 07:18 | Emergency (ER) | payer MEDICAID, SELFPAY ==
[2025-07-16 07:28] VITALS: BP 125/82; PULSE 77; RESP 18; TEMP 37.2; O2SAT 97; BMI 25.2
--- NOTE | 2025-07-16 07:44 | XR_ITS ---
Study: Abdomen pelvis CT without contrast. INDICATION: Lower abdominal pain with bilateral flank pain for 1 day. hCG negative. TECHNIQUE: 3 mm slice thickness without contrast. 3 mm sagittal and coronal reformats. Radiation dose 405 mGy centimeters with dose reduction technique. 1842 images at 1020 hours 16 July 2025. FINDINGS: The patient was imaged from the base of the heart to the subtrochanteric region. The heart, lung bases and pleural spaces are normal. Breast parenchyma is dense bilaterally, greater on the left. The gallbladder, kidneys, adrenal glands and periaortic lymph node region are free from calculi. There is no hydronephrosis, ascites or free abdominal air. Parenchyma of the liver, pancreas, spleen, kidneys, adrenal glands and periaortic lymph node region are normal within the limitations of a noncontrasted study. The stomach is empty and its wall thickness cannot be accurately judged. The duodenum, small bowel, appendix and colon are normal in appearance. The urinary bladder is free from masses. The bladder wall is thin. The uterus is anteverted and normal in morphology. There is a 1.4 cm diameter cyst in the left ovary. Vertebral alignment is normal and free from lesions. The aorta and inferior vena cava are normal in caliber. The left gonadal artery is more prominent than the right. There is no obvious internal blood clot. IMPRESSION: 1. No acute abdominal or pelvic abnormality. 2. Dense breast parenchyma bilaterally.
--- NOTE | 2025-07-16 07:44 | XR_ITS ---
EXAMINATION: Lumbar spine 3 views TECHNIQUE: AP lateral coned lateral lower lumbar spine 3 views Date and time: July 16, 2025, 0955 hours, comparison March 09, 2025 INDICATION: Low back pain beginning 4 days ago FINDINGS: Satisfactory alignment lumbar vertebral bodies No lumbar fracture No significant lumbar disc narrowing No spondylolisthesis IMPRESSION: No lumbar fracture No significant lumbar disc narrowing
--- NOTE | 2025-07-16 07:46 | EDNOTE_ITS ---
ED Abdominal Pain RME/HPI General Chief Complaint: Abdominal Pain Stated complaint: LOWER ABD PAIN, BACK PAIN, TINGLING IN LEGS Time seen by provider: 07/16/25 07:25 Arrival date/time: 07/16/25 07:18 30-year-old female with no known medical history presents to the emergency room with a chief complaint of bilateral lower abdominal pain and lumbar back pain x 4 days Source: patient Mode of arrival: ambulatory Limitations: no limitations Related Data Home Medications ?Medication ?Instructions ?Recorded ?Confirmed vits no.124-ferrous fum 1 tab PO QDAY 9 09/19/22 27 mg iron-folic acid 800 mcg tablet ( Vitamin) Previous Rx's ?Medication ?Instructions ?Recorded ibuprofen 800 mg tablet 800 mg PO Q6H PRN pain #20 t abs 09/19/22 ibuprofen 800 mg tablet (IBU) 800 mg PO Q8H PRN pain # 14 tabs 07/14/25 Allergies Allergy/AdvReac Type Severity Reaction Status Date / Time ciprofloxacin Allergy Severe Swelling Verified 07/16/25 07:22 of Lip/Tongue/Throat Review of Systems Review of Systems Systems Reviewed: All systems reviewed, normal except as documented Constitutional Constitutional: Reports system reviewed and no additional complaints, except as documented, Denies fatigue, Denies fever(s), Denies headache(s) and Denies weakness Eyes Eyes: Reports system reviewed and no additional complaints, except as documented, Denies blurry vision and Denies change in vision ENT Ears, Nose, Mouth, and Throat: Reports system reviewed and no additional complaints, except as documented, Denies otalgia, Denies headache(s), Denies nasal congestion, Denies throat swelling and Denies vertigo Cardiovascular Cardiovascular: Reports system reviewed and no additional complaints, except as documented, Denies chest pain, Denies dyspnea and Denies dyspnea on exertion Respiratory Respiratory: Reports system reviewed and no additional complaints, except as documented, Denies chest congestion, Denies cough, Denies dyspnea, Denies dyspnea on exertion and Denies wheezing Gastrointestinal Gastrointestinal: Reports system reviewed and no additional complaints, except as documented, Reports abdominal pain, Reports cramping, Denies nausea and Denies vomiting Genitourinary Genitourinary: Reports system reviewed and no additional complaints, except as documented Musculoskeletal Musculoskeletal: Reports system reviewed and no additional complaints, except as documented and Reports back pain Integumentary/Breasts Skin/Breast: Reports system reviewed and no additional complaints, except as documented and Denies wounds Neurologic Neurologic: Reports system reviewed and no additional complaints, except as documented, Denies confusion, Denies headache(s), Denies lack of coordination, Denies vertigo and Denies weakness Psychiatric Psychiatric: Reports system reviewed and no additional complaints, except as documented, Denies anxiety, Denies confusion, Denies depression, Denies paranoia, Denies suicidal ideation and Denies tactile hallucinations Endocrine Endocrine: Reports system reviewed and no additional complaints, except as documented and Denies fatigue Hematologic/Lymphatic Hematologic/Lymphatic: Reports system reviewed and no additional complaints, except as documented and Denies lymphadenopathy Allergic/Immunologic Allergic/Immunologic: Reports system reviewed and no additional complaints, except as documented, Denies throat swelling, Denies urticaria and Denies wheezing Past Medical History Past Medical History NEUROLOGIC: Positive Neurological Disorders and Seizures (IN [place] (1)) CARDIAC: Negative Cardiac Disorders or Congestive Heart Failure RESPIRATORY: Negative Chronic Obstructive Pulmonary Disease (COPD) GASTROINTESTINAL: Negative Gastrointestinal Disorders, Hepatitis or Colorectal Cancer GENITOURINARY: Negative Genitourinary Disorders, Renal Disease or Prostate Cancer REPRODUCTIVE: Positive Previous Pregnancies (X2); Negative Breast Cancer, Pelvic Inflammatory Disease or Testicular Cancer MUSCULOSKELETAL: Negative Musculoskeletal Disorders or Bone Cancer ENDOCRINE: Negative Endocrine Disorders, Diabetes Mellitus Type 1 or Diabetes Mellitus Type 2 HEMATOLOGIC: Negative Blood Disorders, Anemia, Leukemia, Hemophilia, Thalassemia, Sickle Cell Disease or Clotting Problems OTHER HISTORY: Positive Hospitalization (CHILDBIRTH); Negative Autoimmune Disease, Down Syndrome, Developmental Delay, Shingles, Falls, Blood Transfusions, Blood Transfusion Reaction, Anesthesia Reactions, Organ Transplant, Chemotherapy, Radiation Therapy, Hyperbaric Therapy, MRSA, VRSA, Vancomycin-Resistant Enterococci, Human Immunodeficiency Virus (HIV), Chicken Pox, Measles, Mumps, Rubella ([place] Measles), Pertussis, Clostridium Difficile, Cancer, Breast Cancer, Cervical Cancer, Colorectal Cancer, Lung Cancer, Ovarian Cancer, Prostate Cancer or Testicular Cancer Family History FAMILY HISTORY: Positive Family Psychiatric Problems (UNCLE-UNSPECIFIED), Family Respiratory Disorders (SISTER-ASTHMA), Family Cardiac Disorders (MOTHER-HTN, GRANDFATHER PASSED FROM [place]) and Family Surgery (MOTHER-HYSTERECTOMY); Negative Family Gastrointestinal Problems, Family Cancer or Family Anesthesia Reaction Surgical History SURGICAL: Negative Section or Organ Transplant Social History SMOKING STATUS: Never smoker ED Exam General Limitations: Present no limitations General appearance: Present alert and in no apparent distress Head Head exam: Present atraumatic Eye Eye exam: Present normal appearance, PERRL and EOMI ENT ENT exam: Present normal exam, normal oropharynx and mucous membranes moist Neck Neck exam: Present normal inspection, full ROM and trachea midline Chest Chest inspection: Present normal inspection and symmetric chest wall rise Respiratory Respiratory exam: Present normal lung sounds bilaterally; Absent respiratory distress, wheezes, stridor, accessory muscle use or prolonged expiratory phase Cardiovascular Cardiovascular exam: Present regular rate, normal rhythm and normal heart sounds Abdominal Exam Abdominal exam: Present soft, tenderness and normal bowel sounds; Absent distention, guarding or rebound Abdominal tenderness: Present RLQ and LLQ Extremities Exam Extremities exam: Present normal inspection and full ROM Back Exam Back exam: Present normal inspection and full ROM Neurological Exam Neurological exam: Present alert, oriented X3 and CN II-XII intact Psychiatric Psychiatric exam: Present normal affect and normal mood Skin Skin exam: Present warm, dry, intact and normal color Course Quality Measures none Orders Category Date Time Status CT abdomen pelvis wo con Stat Exams 07/16/25 07:44 Completed XR lumbar spine 2-3V Stat Exams 07/16/25 07:44 Completed CBC Stat Lab 07/16/25 07:52 Completed CMP [Comprehensive Metabolic Panel] Stat Lab 07/16/25 07:52 Completed HCG,Qualitative Serum Stat Lab 07/16/25 07:52 Completed Lipase Stat Lab 07/16/25 07:52 Completed UA, C/S IF [Urinalysis, C/S if Indicated] Stat Lab 07/16/25 08:38 Completed Ibuprofen Tab [Motrin Tab] Med 07/16/25 07:47 Discontinued 600 mg PO X1 ONE Vital Signs Vital signs: Vital Signs Temperature 98.9 F 07/16/25 07:28 Pulse Rate 77 07/16/25 07:28 Respiratory Rate 18 07/16/25 07:28 Blood Pressure 125/82 07/16/25 07:28 Pulse Oximetry (%) 97 07/16/25 07:28 Oxygen Delivery Method Room Air 07/16/25 07:28 Abdominal Pain MDM MDM Narrative MDM Narrative:: 30-year-old female with no known medical history presents to the emergency room with a chief complaint of bilateral lower abdominal pain and lumbar back pain x 4 days Patient is hemodynamically stable and in no apparent distress Physical examination shows bilateral lower abdominal tenderness with palpation. The patient also has some tenderness to the lumbar area of the patient's spine. Patient denies any saddle anesthesia or any loss of bowel or bladder function. Patient has no right lower quadrant abdominal tenderness. And there is no ten derness to McBurney's point CBC CMP were negative for any leukocytosis or any acute findings. Urinalysis was within normal limits CT of the abdomen and pelvis was negative for any acute findings. X-ray of the lumbar spine was negative for any acute findings Patient was discharged and educated to follow-up with primary care provider in the next 24 to 48 hours and return to the emergency room for any evidence of worsening signs or symptoms Patient data External records reviewed:: [facility] previous records Clinical information provided by:: patient Social determinants that could affect healthcare access:: none Patient has the following chronic illnesses:: No chronic illness How is presenting disease/condition affected by chronic disease/condition?: no chronic disease Evaluation data The following diagnostics were reviewed and interpreted by me:: lab results and radiology exam(s) Lab and/or radiology exams considered but not ordered:: Labs and radiology exams considered and ordered Interpretation Summary: CT abdomen and pelvis-FINDINGS: The patient was imaged from the base of the heart to the subtrochanteric region. The heart, lung bases and pleural spaces are normal. Breast parenchyma is dense bilaterally, greater on the left. The gallbladder, kidneys, adrenal glands and periaortic lymph node region are free from calculi. There is no hydronephrosis, ascites or free abdominal air. Parenchyma of the liver, pancreas, spleen, kidneys, adrenal glands and periaortic lymph node region are normal within the limitations of a noncontrasted study. The stomach is empty and its wall thickness cannot be accurately judged. The duodenum, small bowel, appendix and colon are normal in appearance. The urinary bladder is free from masses. The bladder wall is thin. The uterus is anteverted and normal in morphology. There is a 1.4 cm diameter cyst in the left ovary. Vertebral alignment is normal and free from lesions. The aorta and inferior vena cava are normal in caliber. The left gonadal artery is more prominent than the right. There is no obvious internal blood clot. IMPRESSION: 1. No acute abdominal or pelvic abnormality. 2. Dense breast parenchyma bilaterally. X-ray lumbar spine- Medications / Prescriptions Medications or Prescriptions considered but not ordered:: No medication given Medication administrations:: Medication Administration History Discontinued Medications Ibuprofen (Ibuprofen Tab 600 Mg Tablet) 600 mg PO X1 ONE Stop: 07/16/25 07:48 Last Admin: 07/16/25 08:00 Dose: 600 mg Documented By: CIPRIANO No medication given Consultations Consultation(s) initiated? (list below): No Diagnosis Differential diagnosis abdominal pain: abdominal pain and other (Lumbar back sprain) Most likely diagnosis given after review of the tests above:: Lumbar back sprain Admission Indicated Admission indicated?: not indicated Admission Request Was there a request for admission?: No Disposition Plan Disposition Plan: Discharge Discharge Attestation Discharge Attestation: The patient and all family members were given an opportunity to ask questions and understood the discharge instructions. Discharge instructions specifically effects, indications for sooner follow up or return to the emergency department, and the expected course of current diagnosis. Patient condition: Stable Discharge Plan Plan Patient Disposition: HOME (Self Care) Discharge Disposition comment: Stable Prescriptions/Referrals Prescriptions/Med Rec: No Action Vitamin 27 mg iron- 800 mcg Tablet 1 tab PO QDAY ibuprofen 800 mg tablet 800 mg PO Q6H PRN (Reason: pain) Qty: 20 0RF ibuprofen [IBU] 800 mg tablet 800 mg PO Q8H PRN (Reason: pain) Qty: 14 0RF Referrals: Cheo Palomo MD [Primary Care Provider] - In 1 week Problem List Clinical Impression: Lumbar back sprain, Abdominal pain Patient/Caregiver Discharge Instructions Education Materials: ED Back Sprain/Strain Additional Instructions: Please follow-up with your primary care provider in the next [address] of your abdomen and pelvis was negative for any acute findings Your x-ray of your lumbar spine was negative for any acute findings For any evidence of worsening signs or symptoms return to the emergency room immediately Print Language: Arabic Stand Alone Forms: [employer] Award Info., Work/School Release, Patient Portal Info Letter AMADOR/FRANCISCO JAVIER Supervising Physician AMADOR/FRANCISCO JAVIER Supervising Physician: Dr. Frank
[2025-07-16] MEDS: IBUPROFEN TAB 600 MG TABLET PO (08:00)
[2025-07-16 08:09] LABS: Basophils # (Auto) 0.1 Thou/mm3 (0.0-0.2); Basophils % (Auto) 1 % (0-2.5); Eosinophils # (Auto) 0.1 Thou/mm3 (0.0-0.5); Eosinophils % (Auto) 2 % (0-10); Hematocrit 40.7 % (36.0-46.0); Hemoglobin 13.2 g/dL (12.0-16.0); Immature Granulocytes Auto 0.02 Thou/mm3 (0.00-0.00); Lymphocytes # (Auto) 2.1 Thou/mm3 (1.0-4.8); Lymphocytes % (Auto) 33 % (10-50); Mean Corpuscular HGB Conc 32.4 g/dl (31.0-37.0); Mean Corpuscular Hemoglobin 31.4 pg (25.0-35.0); Mean Corpuscular Volume 97 fL (80-100); Monocytes # (Auto) 0.3 Thou/mm3 (0.0-0.8); Monocytes % (Auto) 5 % (0-12); Neutrophils # (Auto) 3.8 Thou/mm3 (1.8-7.7); Neutrophils % (Auto) 59 % (37-80); Nucleated Red Blood Cell # 0.00 Thou/mm3 (0.00-0.00); Nucleated Red Blood Cell % 0 /100 WBC (0); Platelet Count 294 Thou/mm3 (140-440); RDW Standard Deviation 46.4 fL (36.4-46.3); Red Blood Count 4.21 Miln/mm3 (4.00-5.20); White Blood Count 6.4 Thou/mm3 (3.6-11.0)
[2025-07-16 08:35] LABS: Alanine Aminotransferase 9 U/L (10-49); Albumin, Serum 4.7 gm/dL (3.5-5.0); Albumin/Globulin Ratio 1.9 (1.2-2.2); Alkaline Phosphatase 107 U/L (46-116); Anion Gap 10 (7-16); Aspartate Amino Transferase 16 U/L (0-34); BUN/Creatinine Ratio 13 Ratio (12-20); Bilirubin,Total 0.4 mg/dL (0.3-1.2); Blood Urea Nitrogen 8 mg/dL (9-23); Calcium 9.0 mg/dL (8.3-10.6); Calcium (Corrected) 9.0 mg/dL (8.5-10.1); Carbon Dioxide 25.4 mMol/L (20.0-31.0); Chloride 107 mMol/L (98-107); Creatinine (Component) 0.6 mg/dL (0.6-1.3); Estimated Creatinine Clearance 126.4 mL/min (>60); Globulin 2.5 gm/dL (2.3-3.5); Glucose 98 mg/dL (74-106); Lipase 38 U/L (12-53); Osmolality,Calculated 281 (275-295); Potassium 4.1 mMol/L (3.4-5.1); Sodium 142 mMol/L (136-145); Total Protein 7.2 gm/dL (5.7-8.2); eGFR > 60 See Note
[2025-07-16 08:42] LABS: Collection Type, Urine Clean Catch
[2025-07-16 09:26] LABS: Bilirubin,Urine Negative (Negative); Blood,Urine 1+ (Negative); Clarity,Urine Clear (Clear/Hazy); Color,Urine Lt-Yellow (Lt Yel-Yel); Culture Indicated,Urine Not Indicated; Glucose, Urine Negative (Negative); Ketones,Urine Negative (Negative); Leukocyte Esterase,Urine Negative (Negative); Nitrite,Urine Negative (Negative); PH,Urine 5.5 (5.0-7.0); Protein,Urine Negative (Neg - Trace); RBC,Urine 5 /hpf (0-3); Specific Gravity,Urine 1.029 (1.001-1.035); Squamous Epithelial Cell,Urine 3 /hpf (0-5); Urobilinogen,Urine Negative mg/dL (0.0-1.0); WBC,Urine 1 /hpf (0-5)
[2025-07-16 09:49] LABS: HCG,Qualitative Serum Negative
== END 2025-07-16 12:39 | disposition home or self-care (01) ==
PROVIDERS: Emergency Provider Nurse Practitioner Family; PCP Internal Medicine
DX: S33.5XXA Sprain of ligaments of lumbar spine, initial encounter (principal); R10.32 Left lower quadrant pain; R10.31 Right lower quadrant pain; X58.XXXA Exposure to other specified factors, initial encounter
CPT/HCPCS: 36415; 72100; 74176; 80053; 81001; 83690; 84703; 85025; 99283; A9270